=== PATIENT | male | born 1935 | race Asian ===

== ENCOUNTER 2024-12-11 21:06 | Emergency (ER) | payer MEDICARE, BC ==
[~2024-12-11] VITALS: Ht 165.1 cm; Wt 74.8 kg
[2024-12-11] MEDS ORDERED: TDAP [DIPH/PERTUSSIS/TET] 0.5 ML VIAL IM ONE (22:00)
[2024-12-11] MEDS: TDAP [DIPH/PERTUSSIS/TET] 0.5 ML VIAL IM ONE (22:05)
[2024-12-11 22:11] VITALS: BP 126/75; TEMP 98.3; O2SAT 99
== END 2024-12-11 22:12 | disposition home or self-care (01) ==
LOC: ER 21:11
DX: S61.011A Laceration without foreign body of right thumb without damage to nail, initial encounter (principal); W26.8XXA Contact with other sharp object(s), not elsewhere classified, initial encounter; Y93.G3 Activity, cooking and baking; Y92.89 Other specified places as the place of occurrence of the external cause; Y99.8 Other external cause status
CPT/HCPCS: 90715